=== PATIENT | female | born 1955 | race Caucasian/White ===

== ENCOUNTER 2019-11-14 15:56 | Emergency (ER) | payer OTHER ==
[2019-11-14 16:08] VITALS: BP 115/70; PULSE 76; TEMP 98; BMI 22.6
--- NOTE | 2019-11-14 16:45 | PDOC ---
History of Present Illness - General Chief Complaint: Rash Stated Complaint: RT ANKLE RASH Time Seen by Provider: 11/14/19 16:14 History Source: Patient Exam Limitations: No Limitations - History of Present Illness Initial Comments: 11/14/19 16:40 Patient is a 64-year-old female who presents to the ED with complaint of a rash to her bilateral lower extremities that she has had for "a long time". She states she saw her primary doctor and was referred to a home appraiser but she did not have time to see one at that time. She denies any fevers or chills. She states the rash is very itchy. The patient denies any past medical history or allergies to medications. Past History - Past Medical History Allergies/Adverse Reactions: Allergies Allergy/AdvReac Type Severity Reaction Status Date / Time No Known Allergies Allergy Verified 11/14/19 16:02 Home Medications: Ambulatory Orders NK [No Known Home Medication] 11/14/19 COPD: No - Psycho Social/Smoking Cessation Hx Smoking History: Unknown if ever smoked Hx Alcohol Use: No Drug/Substance Use Hx: No Review of Systems - Review of Systems Comments:: 11/14/19 16:41 - Review of Systems Able to Perform ROS?: Yes Constitutional: No: Fever, Chills, Loss of Appetite, Night Sweats, Weakness HEENTM: No: Eye Pain, Vision changes, Ear Pain, Throat Pain, Throat Swelling, Mouth Pain, Difficulty Swallowing Respiratory: No: Cough, Shortness of Breath, Wheezing, Sputum Production Cardiac (ROS): No: Chest Pain, Chest Tightness, Palpitations, Irregular Heart Beat, Edema ABD/GI: No: Nausea, Vomiting, Abdominal Pain, Diarrhea : No Dysuria, No Hematuria, No Frequency, No Urgency Musculoskeletal: No: Muscle Pain, Back Pain, Joint Pain, Muscle Weakness, Neck Pain Integumentary: No: Lesions; positive: Rash bilateral lower extremities Neurological: No: Headache, Numbness, Tingling, Weakness, Speech Difficulties *Physical Exam - Vital Signs Last Vital Signs Temp Pulse Resp BP Pulse Ox 98 F 76 18 115/70 98 11/14/19 16:02 11/14/19 16:02 11/14/19 16:02 11/14/19 16:02 11/14/19 16:02 - Physical Exam 11/14/19 16:41 - Physical Exam General Appearance: Nourished, Appropriately Dressed, No Distress Neck: Supple, No Lymphadenopathy (R), No Lymphadenopathy (L), No Rigidity, No Decreased range of motion Respiratory/Chest: Lungs Clear, Normal Breath Sounds. No Respiratory Distress, No Accessory Muscle Use Cardiovascular: Regular Rhythm, Regular Rate, S1, S2 Gastrointestinal/Abdominal: Normal Bowel Sounds, Soft. Non-tender, No Guarding , No Rebound, No Rigidity Musculoskeletal: Normal Inspection. No Decreased Range of Motion Extremity: Normal Capillary Refill, Normal Inspection Integumentary: Normal Color, Dry. There is a plaque-like rash on the bilateral lower extremities, right worse than left. There are excoriations appreciated. There is no sign of infection. There is no vesicles or pustules. 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 Plan: The patient has been made aware that her rash appears to be something like a psoriasis. She states that she was told this by her primary doctor and was referred to a home appraiser. The patient has been made aware that she needs diagnosis confirmation with a home appraiser and we will refer her to 1. She has been encouraged to not scratch the area. The patient will follow-up with dermatology for further evaluation and treatment. She understands and agrees with this treatment plan and she is stable for discharge. Discharge - Discharge Information Problems reviewed: Yes Clinical Impression/Diagnosis: Rash Condition: Stable Disposition: HOME - Follow up/Referral Referrals: Nya Steward MD [Staff Physician] - Gen Lea [Non Staff, Medical] - - Patient Discharge Instructions Patient Printed Discharge Instructions: DI for Rash Additional Instructions: Your rash looks like psoriasis but will need dermatology for an accurate diagnosis. You have been given names of 2 home appraiser that you can follow-up with. Try to avoid scratching the rash. Follow-up with dermatology as soon as possible. - Post Discharge Activity
== END 2019-11-14 16:53 | disposition home or self-care (01) ==
LOC: JERFT 15:56
DX: R21 Rash and other nonspecific skin eruption (principal)
CPT/HCPCS: 99281-25

== ENCOUNTER 2019-11-20 12:18 | Emergency (ER) | payer OTHER ==
[2019-11-20 12:50] VITALS: BP 109/67; PULSE 71; TEMP 97.9; BMI 23.6
--- NOTE | 2019-11-20 13:50 | PDOC ---
History of Present Illness - General Chief Complaint: Wound Stated Complaint: WOUND CARE Time Seen by Provider: 11/20/19 12:52 History Source: Patient Exam Limitations: Clinical Condition - History of Present Illness Initial Comments: 11/20/19 13:51 Patient with past medical history of psoriasis to bilateral lower extremities present with complaint of persistent itching and open wound to heal of left leg from scratching. Patient reports psoriasis is been going on for many years but has not been followed up being to be in a [facility]. Patient was seen a week ago for same symptoms here and referred to dermatology by patient report she could not be seen in dermatology clinic due to being told her insurance was not accepted over there. Patient report presents another clinic but was not seen due to not have her insurance card with her. Patient reported bilateral feet to be very itchy and keeps her up at night due to itchiness. Denies fever, chills, history of diabetes. Denies any other symptoms Timing/Duration: reports: getting worse Past History - Past Medical History Allergies/Adverse Reactions: Allergies Allergy/AdvReac Type Severity Reaction Status Date / Time No Known Allergies Allergy Verified 11/20/19 12:46 Home Medications: Ambulatory Orders Mupirocin Ointment [Bactroban] 1 applic TP BID #1 tube 11/20/19 COPD: No - Psycho Social/Smoking Cessation Hx Smoking History: Former smoker Have you smoked in the past 12 months: No Information on smoking cessation initiated: No Hx Alcohol Use: No Drug/Substance Use Hx: No Review of Systems - Review of Systems Able to Perform ROS?: Yes Is the patient limited Japanese proficient: No Constitutional: No: Chills, Fever, Malaise HEENTM: No: Symptoms Reported, See HPI, Eye Pain, Blurred Vision, Tearing, Recent change in vision, Double Vision, Cataracts, Ear Pain, Ocular Prothesis, Ear Discharge, Nose Pain, Nose Congestion, Tinnitus, Nose Bleeding, Hearing Loss , Throat Pain, Throat Swelling, Mouth Pain, Dental Problems, Difficulty Swallowing, Mouth Swelling, Other Respiratory: No: Symptoms reported, See HPI, Cough, Orthopnea, Shortness of Breath, SOB with Exertion, SOB at Rest, Stridor, Wheezing, Productive cough, Hemoptysis, Other Cardiac (ROS): No: Symptoms Reported, See HPI, Chest Pain, Edema, Irregular Heart Rate, Lightheadedness, Palpitations, Syncope, Chest Tightness, Other ABD/GI: No: Symptoms Reported, Nausea, Vomiting Musculoskeletal: No: Symptoms Reported, Muscle Pain Integumentary: Yes: Symptoms Reported, See HPI, Pruritus (bl feet and lower leg), Rash (b/l ankles and feet) Neurological: No: Symptoms reported, Paresthesia, Tingling, Dizziness All Other Systems: Reviewed and Negative *Physical Exam - Vital Signs Last Vital Signs Temp Pulse Resp BP Pulse Ox 97.9 F 71 18 109/67 97 11/20/19 12:47 11/20/19 12:47 11/20/19 12:47 11/20/19 12:47 11/20/19 12:47 - Physical Exam General Appearance: Yes: Nourished, Appropriately Dressed. No: Apparent Distress HEENT: positive: Normal ENT Inspection Neck: negative: Supple Respiratory/Chest: negative: Respiratory Distress, Accessory Muscle Use Musculoskeletal: positive: Normal Inspection Extremity: positive: Normal Capillary Refill, Other (diffused psoriatic rash to b/l ankles, heels and proximal feet. 3cm linear superficial laceration from dry skin and excoriations to left medial proximal foot. no drainage from site). negative: Erythema Integumentary: positive: Warm. negative: Erythema Neurologic: positive: Fully Oriented, Alert, Normal Mood/Affect, Normal Response, Motor Strength 5/5 Medical Decision Making - Medical Decision Making 11/20/19 13:54 Patient with past medical history of psoriasis to bilateral lower extremities present with complaint of persistent itching and open wound to heal of left leg from scratching. Patient reports psoriasis is been going on for many years but has not been followed up being to be in a homeless prison. Patient was seen a week ago for same symptoms here and referred to dermatology by patient report she could not be seen in dermatology clinic due to being told her insurance was not accepted over there. Patient report presents another clinic but was not seen due to not have her insurance card with her. Patient reported bilateral feet to be very itchy and keeps her up at night due to itchiness. Denies fever, chills, history of diabetes. Denies any other symptoms Exam significant for diffuse psoriatic plaques to bilateral lower extremities with increased plaques to heels and around ankle bilateral feet with linear 3 cm superficial wound to medial aspect of left midfoot. No discharge or erythema to wound site. Wound cleaned with Betadine and covered with petroleum jelly infused gauze and wrapped with stretch gauze. Follow-up appointment made in wound care clinic for patient for tomorrow morning which appointment was given to patient and patient stable for discharge on Bactroban topical cream with wound care and podiatry follow-up Discharge - Discharge Information Problems reviewed: Yes Clinical Impression/Diagnosis: Psoriasis (a type of skin inflammation), Unspecified open wound, left foot, subsequent encounter Condition: Stable Disposition: HOME - Admission No - Additional Discharge Information Prescriptions: Mupirocin Ointment [Bactroban] 1 applic TP BID #1 tube - Follow up/Referral Referrals: Jay Viveros MD [Staff Physician] - Gabe Kaplan DO [Staff Physician] - 11/21/19 9:00 am - Patient Discharge Instructions Patient Printed Discharge Instructions: DI for Psoriasis Additional Instructions: Use prescribed cream on wound as prescribed. Follow-up with wound care clinic tomorrow morning at 9 AM as scheduled with Dr. Kaplan. You are also being given referral to the foot doctor to follow-up as well for the next available appointment - Post Discharge Activity
== END 2019-11-20 13:55 | disposition home or self-care (01) ==
LOC: JERFT 12:18
DX: L40.9 Psoriasis, unspecified (principal); S90.922A Unspecified superficial injury of left foot, initial encounter; X58.XXXA Exposure to other specified factors, initial encounter; Y93.9 Activity, unspecified; Y92.89 Other specified places as the place of occurrence of the external cause; Y99.8 Other external cause status; Z59.0 Homelessness
CPT/HCPCS: 99281-25

== ENCOUNTER 2021-12-31 14:12 | Emergency (ER) | payer OTHER ==
[2021-12-31 14:17] VITALS: BP 114/74; PULSE 66; TEMP 97.7; BMI 25.3
== END 2021-12-31 15:57 | disposition home or self-care (01) ==
LOC: JERFT 14:12
DX: S60.511A Abrasion of right hand, initial encounter (principal); M79.641 Pain in right hand; W25.XXXA Contact with sharp glass, initial encounter
CPT/HCPCS: 73130-TC-LT-FY; 99283-25

== ENCOUNTER 2022-07-17 16:04 | Emergency (ER) | payer OTHER ==
[2022-07-17 16:20] VITALS: BP 110/67; PULSE 82; RESP 18; TEMP 98.6; BMI 24.5
[2022-07-17 19:41] LABS: BASO % 1.1 % (0-2.0); EOS % 1.7 % (0-4.5); HEMATOCRIT 36.7 % (32.4-45.2); HEMOGLOBIN 12.4 GM/dL (10.7-15.3); LYMPH % 31.4 % (8-40); MCHC 33.7 g/dl (32.0-36.0); MEAN CELL VOLUME 89.1 fl (80-96); MEAN PLT VOLUME 7.9 fl (7.5-11.1); MONO % 9.4 % (3.8-10.2); NEUT % 56.4 % (42.8-82.8); PLATELET COUNT 271 10^3/uL (134-434); RBC 4.12 M/mm3 (3.60-5.2); RDW 12.5 % (11.6-15.6); WHITE BLOOD COUNT 6.1 K/mm3 (4.0-10.0)
[2022-07-17 19:59] LABS: CHLORIDE 105 mmol/L (98-107); SODIUM 139 mmol/L (136-145)
[2022-07-17 20:02] LABS: ANION GAP 7 MMOL/L (8-16); BLOOD UREA NITROGEN 17.1 mg/dL (7-18); CALCIUM 8.9 mg/dL (8.5-10.1); CO2 28 mmol/L (21-32); GLUCOSE,RANDOM 84 mg/dL (74-106)
[2022-07-17 20:05] LABS: SGPT/ALT 18 U/L (13-61); URIC ACID 5.8 mg/dL (2.6-7.2)
[2022-07-17 20:06] LABS: CREATININE 0.9 mg/dL (0.55-1.3); SGOT/AST 14 U/L (15-37)
[2022-07-17 20:07] LABS: BILIRUBIN,TOTAL 0.4 mg/dL (0.2-1); TOT PROT 7.1 g/dl (6.4-8.2)
[2022-07-17 20:08] LABS: ALK PHOS 85 U/L (45-117)
== END 2022-07-17 22:03 | disposition home or self-care (01) ==
LOC: JER 16:04
DX: M79.642 Pain in left hand (principal); M25.562 Pain in left knee
CPT/HCPCS: 36415; 73090-TC-LT-FY; 73130-TC-LT-FY; 73564-TC-LT-FY; 80053; 84550; 85025; 85651; 86140; 86431; 93971; 99285-25

== ENCOUNTER 2022-10-01 13:26 | Emergency (ER) | payer OTHER ==
[2022-10-01 13:33] VITALS: BP 122/85; PULSE 83; RESP 18; TEMP 97.6; BMI 20.7
[2022-10-01 15:52] LABS: BASO % 1.2 % (0-2.0); EOS % 1.3 % (0-4.5); HEMATOCRIT 34.4 % (32.4-45.2); HEMOGLOBIN 11.2 GM/dL (10.7-15.3); LYMPH % 31.4 % (8-40); MCH 27.9 pg (25.7-33.7); MCHC 32.4 g/dl (32.0-36.0); MEAN PLT VOLUME 7.9 fl (7.5-11.1); MONO % 6.8 % (3.8-10.2); NEUT % 59.3 % (42.8-82.8); PLATELET COUNT 323 10^3/uL (134-434); WHITE BLOOD COUNT 6.2 K/mm3 (4.0-10.0)
[2022-10-01 15:57] LABS: INR 1.15 (0.83-1.09); PROTHROMBIN TIME (PATIENT) 13.3 SEC (9.7-13.0)
[2022-10-01 16:00] LABS: ACTIVATED PTT 29.7 SECONDS (25.2-36.5)
[2022-10-01 16:25] LABS: ALBUMIN 2.8 g/dl (3.4-5.0); BLOOD UREA NITROGEN 28.9 mg/dL (7-18); CALCIUM 8.7 mg/dL (8.5-10.1)
[2022-10-01 16:28] LABS: CREATININE 1.1 mg/dL (0.55-1.3)
[2022-10-01 16:30] LABS: BILIRUBIN,TOTAL 0.2 mg/dL (0.2-1); TOT PROT 7.6 g/dl (6.4-8.2)
== END 2022-10-01 19:51 | disposition left against medical advice (07) ==
LOC: JER 13:26
DX: G45.8 Other transient cerebral ischemic attacks and related syndromes (principal)
CPT/HCPCS: 36415; 70450-TC; 80053; 84484; 85025; 85610; 85730; 86850; 86900; 86901; 93005; 93010; 99285-25; C9803-CS; U0003; U0005

== ENCOUNTER 2022-10-02 11:25 | Emergency (ER) | payer OTHER ==
[2022-10-02 11:47] VITALS: BP 131/83; PULSE 72; RESP 17; TEMP 97.7; BMI 25.4
== END 2022-10-02 15:51 | disposition home or self-care (01) ==
LOC: JER 11:25
DX: M79.642 Pain in left hand (principal)
CPT/HCPCS: 72170-TC-FY; 73502-TC-RT-FY; 99284-25